=== PATIENT | female | born 1960 ===

== ENCOUNTER → 2017-06-17 | Outpatient (REF) | payer MEDICAID ==
[2017-06-17 19:43] LABS: THYROXINE (T4) 7.6 UG/DL (4.5-12.0)
== END ==
LOC: M LAB REF 17:54
PROVIDERS: ATTEND Nurse Practitioner Adult Health
DX: Z00.00 Encounter for general adult medical examination without abnormal findings (principal); E03.9 Hypothyroidism, unspecified